=== PATIENT | female | born 1995 | race Two or more races ===

== ENCOUNTER 2016-07-08 16:35 | Emergency (ER) | payer MEDICAID ==
[2016-07-08 16:42] VITALS: TEMP 98.4; O2SAT 96
[2016-07-08] MEDS ORDERED: NS 1,000 ML IV ONE (16:55)
[2016-07-08 17:11] LABS: COLOR YELLOW; LEUKOCYTE ESTERASE,URINE NEGATIVE (NEGATIVE); NITRITE,URINE NEGATIVE (NEGATIVE)
[2016-07-08 17:13] LABS: % IMMATURE GRANULYOCYTES 0.1 % (0.0-1.1); ABSOLUTE IMMATURE GRANULOCYTES 0.01 10^3/uL (0.00-0.10); ADD DIFF? NO; ADD MORPH? NO; ADD SCAN? NO; ATYPICAL LYMPHOCYTE FLAG 10 (0-99); FRAGMENT RBC FLAG 10 (0-99); HEMATOCRIT 47.4 % (38.0-47.0); LEFT SHIFT FLG 0 (0-99); LIPEMIA HEMOLYSIS FLAG 90 (0-99); MEAN CELL HEMOGLOBIN 31.4 pg (27.9-34.1); MEAN CELL HEMOGLOBIN CONCENTR. 33.8 g/dL (32.4-36.7); MEAN CELL VOLUME 92.9 fL (81.5-99.8); MEAN PLATELET VOLUME 10.1 fL (8.7-11.7); PLATELET CLUMPS FLAG 10 (0-99); PLATELET COUNT 282 10^3/uL (150-400); RED CELL DISTRIBUTION WIDTH 12.6 % (11.5-15.2)
[2016-07-08 17:30] LABS: ANION GAP 14 mEq/L (8-16); CALCIUM 10.1 mg/dL (8.5-10.4); CARBON DIOXIDE 23 mEq/l (22-31); CHLORIDE 109 mEq/L (97-110); CREATININE 0.6 mg/dL (0.6-1.0); GLOMERULAR FILTRATION RATE > 60; GLUCOSE 80 mg/dL (70-100); POTASSIUM 4.2 mEq/L (3.5-5.2); SODIUM 146 mEq/L (134-144)
[2016-07-08 17:37] LABS: BACTERIA 1+ /hpf (NONE SEEN); MUCUS TRACE /lpf (NONE-1+); RBC,URINE 50-182 /hpf (0-3)
--- NOTE | 2016-07-08 17:41 | EDPHY ---
H & P Stated Complaint: Right flank pain/ frequent urination Time Seen by Provider: 07/08/16 17:40 HPI/ROS: HPI: 21-year-old female presents to emergency department with chief concern right side pain and dizziness. Reports onset of right-sided and right flank pain 12/06 at 1:00 p.m. today associated with nausea. Reports associated urinary urgency and hesitancy. Denies fever, chills, myalgias, URI symptoms, shortness of breath, chest pain, vomiting, diarrhea, rash. LMP 1 week ago. Denies significant past medical history. ROS:10 point review of systems is negative other than as stated in HPI Source: Patient Exam Limitations: No limitations - Personal History Current Tetanus/Diphtheria Vaccine: Yes Current Tetanus Diphtheria and Acellular Pertussis (TDAP): Yes - Medical/Surgical History Hx Asthma: No Hx Chronic Respiratory Disease: No Hx Diabetes: No Hx Cardiac Disease: No Hx Renal Disease: No Hx Cirrhosis: No Hx Alcoholism: No Hx HIV/AIDS: No Hx Splenectomy or Spleen Trauma: No - Family History Significant Family History: No pertinent family hx - Social History Smoking Status: Never smoked - Physical Exam Exam: Vital signs stable, reviewed by me General: Awake, alert, calm, cooperative. No acute distress. Head: Normalocephalic. Atraumatic. EENT: PERRLA. EOMI. No pallor or injection. Anicteric. No nystagmus. No injection. TMs intact bilaterally with normal landmarks. No rhinnorhea, nasal passages clear. Oropharynx without redness, exudates, or lesions. Tonsils 2+ bilaterally, no exudates. Neck: Supple, nontender. No lymphadenopathy. Full range of motion. No meningismus. Respiratory: Breathing unlabored. Breath sounds equal bilaterally and clear to auscultation. No adventitious sounds. CV: Chest nontender, atraumatic. Heart rate regular. No murmur, distal pulses 2+ bilaterally. Brisk cap refill all extremities. GI: Abdomen soft, nontender. Bowel sounds normoactive and positive x4 quadrants. : No suprapubic tenderness. Right-sided CVA tenderness. Neuro: Alert. Oriented x 3. Speech clear. Nonfocal cranial nerves throughout. Sensation intact all extremities. Skin: Skin warm, dry, intact. No rashes, abrasions, or lacerations. Skin turgor normal. Extremities: Full range of motion in all 4 extremities. Strength 5+ all extremities. Constitutional: Initial Vital Signs Temperature (C) 36.9 C 07/08/16 16:40 Heart Rate 68 07/08/16 16:40 Respiratory Rate 14 07/08/16 16:40 Blood Pressure 110/78 07/08/16 16:40 O2 Sat (%) 96 07/08/16 16:40 O2 Delivery Mode Room Air Allergies/Adverse Reactions: No Known Allergies Allergy (Unverified 07/08/16 16:40) Home Medications: Medication Instructions Recorded Cephalexin [Keflex (*)] 500 mg PO TID #30 cap 07/08/16 Medical Decision Making - Diagnostics Imaging: CT Scan of the Abdomen and Pelvis With Contrast Indication: Flank pain, abdominal pain and hematuria in a 21-year-old female. Impression: 1. Negative for nephrolithiasis or obstructive uropathy. 2. No findings to support a clinical diagnosis of acute appendicitis. 3. See above report for additional findings. Dictated By: Boaz Brian MD ED Course/Re-evaluation: 21-year-old female presents to emergency department with chief concern right- sided pain that onset today 1:00 p.m. WBCs 9050. H&H 18/0.6. Urine HCG negative. Urinalysis shows 1+ blood, 50-182 RBCs, 1+ bacteria. LMP was [address] abdomen pelvis performed to rule out kidney stone. CT abdomen pelvis negative for kidney stone or obstructive uropathy. Appendix was visualized and was not abnormal and this patient has no right lower quadrant tenderness. Source of her pain not identified. Vitals remained stable. As she does have 1 + bacteria in her urine I will treat her for a UTI. I have counseled her regarding follow-up with PCP tomorrow. She agrees to do so. Differential Diagnosis: Differential diagnosis includes but is not limited to kidney stone, pyelonephritis, appendicitis, pneumonia - Data Points Laboratory Results: Laboratory Results 07/08/16 16:50 07/08/16 16:50 07/08/16 07/08/16 16:50 16:43 WBC 9.05 10^3/uL (3.80-9.50) RBC 5.10 10^6/uL (4.18-5.33) Hgb 16.0 g/dL (12.6-16.3) Hct 47.4 H % (38.0-47.0) MCV 92.9 fL (81.5-99.8) MCH 31.4 pg (27.9-34.1) MCHC 33.8 g/dL (32.4-36.7) RDW 12.6 % (11.5-15.2) Plt Count 282 10^3/uL (150-400) MPV 10.1 fL (8.7-11.7) Neut % (Auto) 76.8 H % (39.3-74.2) Lymph % (Auto) 18.3 % (15.0-45.0) [place] % (Auto) 4.2 L % (4.5-13.0) Eos % (Auto) 0.3 L % (0.6-7.6) Baso % (Auto) 0.3 % (0.3-1.7) Nucleat RBC Rel Count 0.0 % (0.0-0.2) Absolute Neuts (auto) 6.94 H 10^3/uL (1.70-6.50) Absolute Lymphs (auto) 1.66 10^3/uL (1.00-3.00) Absolute Monos (auto) 0.38 10^3/uL (0.30-0.80) Absolute Eos (auto) 0.03 10^3/uL (0.03-0.40) Absolute Basos (auto) 0.03 10^3/uL (0.02-0.10) Absolute Nucleated RBC 0.00 10^3/uL (0-0.01) Immature Gran % 0.1 % (0.0-1.1) Immature Gran # 0.01 10^3/uL (0.00-0.10) Sodium 146 H mEq/L (134-144) Potassium 4.2 mEq/L (3.5-5.2) Chloride 109 mEq/L (97-110) Carbon Dioxide 23 mEq/l (22-31) Anion Gap 14 mEq/L (8-16) BUN 18 mg/dL (7-23) Creatinine 0.6 mg/dL (0.6-1.0) Estimated GFR > 60 Glucose 80 mg/dL (70-100) Calcium 10.1 mg/dL (8.5-10.4) Total Bilirubin 0.9 mg/dL (0.1-1.4) Conjugated Bilirubin 0.4 mg/dL (0.0-0.5) Unconjugated Bilirubin 0.5 mg/dL (0.0-1.1) AST 37 IU/L (14-46) ALT 31 IU/L (9-52) Alkaline Phosphatase 85 IU/L (38-126) Total Protein 8.9 H g/dL (6.3-8.2) Albumin 5.3 H g/dL (3.5-5.0) Lipase 80.0 IU/L (23-300) Beta HCG, Qual NEGATIVE Urine Color YELLOW Urine Appearance CLEAR Urine pH 5.0 (5.0-7.5) Ur Specific [place] 1.020 (1.002-1.030) Urine Protein NEGATIVE (NEGATIVE) Urine Ketones 1+ H (NEGATIVE) Urine Blood 1+ H (NEGATIVE) Urine Nitrate NEGATIVE (NEGATIVE) Urine Bilirubin NEGATIVE (NEGATIVE) Urine Urobilinogen NEGATIVE EU (0.2-1.0) Ur Leukocyte Esterase NEGATIVE (NEGATIVE) Urine RBC 50-182 H /hpf (0-3) Urine WBC 1-3 /hpf (0-3) Ur Epithelial Cells TRACE /lpf (NONE-1+) Urine Bacteria 1+ H /hpf (NONE SEEN) Urine Mucus TRACE /lpf (NONE-1+) Ur Culture Indicated? NOT INDICATED (NI) Urine Glucose NEGATIVE (NEGATIVE) Medications Given: Discontinued Medications Cephalexin (Keflex 500 Mg Prepack#4) 1 btl TAKEHOME EDNOW ONE Stop: 07/08/16 19:27 Last Admin: 07/08/16 19:35 Dose: 1 btl Sodium Chloride (Ns) 1,000 mls @ 0 mls/hr IV ONCE ONE PRN Reason: Wide Open Stop: 07/08/16 16:56 Last Admin: 07/08/16 16:59 Dose: 1,000 mls Departure - Departure Disposition: Home, Routine, Self-Care Clinical Impression: Dysuria, Flank pain, Hematuria Condition: Good Instructions: Cephalexin (By mouth), Dysuria (ED), Flank Pain (ED) Additional Instructions: Plan: It is imperative that he follow up with primary care tomorrow for recheck without fail--When you call to schedule appointment, please let the office know you are an "ER follow up" appointment" The drink plenty fluids Antibiotic as prescribed Return to ER for worsening symptoms or for vomiting or fever Referrals: NONE *PRIMARY CARE P,. [Primary Care Provider] - As per Instructions Galileo Allen MD [Medical Doctor] - As per Instructions Prescriptions: Cephalexin [Keflex (*)] 500 mg PO TID #30 cap
[2016-07-08] MEDS ORDERED: IOPAMIDOL (ISOVUE-300) 100 ML BTL IV ONE (18:10)
[2016-07-08 18:52] LABS: ALBUMIN 5.3 g/dL (3.5-5.0); BILIRUBIN,TOTAL 0.9 mg/dL (0.1-1.4); BILIRUBIN-CONJUGATED 0.4 mg/dL (0.0-0.5); BILIRUBIN-UNCONJUGATED 0.5 mg/dL (0.0-1.1); TOTAL PROTEIN 8.9 g/dL (6.3-8.2)
--- NOTE | 2016-07-08 19:10 | CT ---
CT Scan of the Abdomen and Pelvis With Contrast Indication: Flank pain, abdominal pain and hematuria in a 21-year-old female. Technique: Multidetector CT images of the abdomen and pelvis were obtained following the uneventful i ntravenous administration of 85 mL Isovue-300 contrast. No oral contrast was administered. Axial imag es are obtained at 5 mm intervals and reformatted at 1.5 mm thickness. The examination is reviewed on the workstation at multiple window/level settings. Sagittal and coronal reformations are performed. Dose reduction techniques were utilized for this examination. Findings Abdomen: Lung bases: Normal. No pleural fluid. Liver: Normal. Biliary system: Normal gallbladder. No intra or extrahepatic dilatation. Spleen: Normal. Pancreas: Normal. Adrenals: Normal. Kidneys: The kidneys perfuse symmetrically. There is no hydronephrosis and no nephrolithiasis. The ur eters are normal in their course throughout the abdomen to the level of the ureterovesical junction. Abdominal Aorta: No aneurysm. No bowel obstruction, ascites, or retroperitoneal lymphadenopathy. CT Pelvis Findings: An abnormal appendix is not visualized. There are no findings to suggest a right lower quadrant inflammatory process. There is a moderate scoliotic curvature convex to the left measu ring 24 degrees. The uterus is anteverted. Multiple follicular cysts are seen in the right ovary. No free air is identified and no free fluid is seen. Impression: 1. Negative for nephrolithiasis or obstructive uropathy. 2. No findings to support a clinical diagnosis of acute appendicitis. 3. See above report for additional findings. A preliminary report was called to Dinorah Ibarra PA-C at 1900 hours in the Emergency Department.
[2016-07-08] MEDS ORDERED: CEPHALEXIN 500MG PREPACK#4 BTL TAKEHOME ONE (19:26)
[2016-07-08 19:42] VITALS: BP 104/72; PULSE 69; RESP 16
== END 2016-07-08 19:41 | disposition home or self-care (01) ==
DX: R10.9 Unspecified abdominal pain (principal); R30.0 Dysuria; R31.9 Hematuria, unspecified
CPT/HCPCS: Q9967